=== PATIENT | female | born 1955 | race Caucasian/White ===

== ENCOUNTER → 2023-09-02 15:33 | Outpatient (REF) | payer OTHER, SELFPAY | LOC: HWRAD 15:33 | PROVIDERS: ATTENDING PHYSICIAN Physician Assistant Medical | DX: M25.562 Pain in left knee (principal) | CPT/HCPCS: 73564 ==

== ENCOUNTER → 2024-06-18 15:01 | Outpatient (REF) | payer SELFPAY | LOC: HWRAD 15:01 | PROVIDERS: ATTENDING PHYSICIAN Physician Assistant Medical | DX: E78.2 Mixed hyperlipidemia (principal) | CPT/HCPCS: 75571 ==

== ENCOUNTER → 2024-06-18 15:06 | Outpatient (REF) | payer OTHER, SELFPAY | LOC: HWWDC 15:06 | PROVIDERS: ATTENDING PHYSICIAN Physician Assistant Medical | DX: Z12.31 Encounter for screening mammogram for malignant neoplasm of breast (principal) | CPT/HCPCS: 77063; 77067 ==

== ENCOUNTER → 2024-12-08 14:13 | Outpatient (REF) | payer OTHER, SELFPAY | LOC: HWRAD 14:13 | PROVIDERS: ATTENDING PHYSICIAN Nurse Practitioner Family | DX: J18.9 Pneumonia, unspecified organism (principal) | CPT/HCPCS: 71046 ==